=== PATIENT | male | born 1995 | race Two or more races ===

== ENCOUNTER 2024-08-16 08:58 | Emergency (ER) | payer OTHER ==
[~2024-08-16] VITALS: Ht 170.2 cm; Wt 60.0 kg
[2024-08-16 09:17] VITALS: O2SAT 97
[2024-08-16] MEDS ORDERED: AMOX1TAB16 MT (10:58)
[2024-08-16] MEDS ORDERED: IBUP-2029 MT (10:58)
[2024-08-16] MEDS: IBUPROFEN 800MG TABLET PO ONE (11:41)
[2024-08-16] MEDS: TETANUS, DIPHTHERIA, PERTUSSIS VAC/PF 0.5ML (>10YR OLD) IM ONE (11:41)
[2024-08-16] MEDS: LIDOCAINE HCL/PF 1% 10 MG/ML 5ML VIAL INFIL ONE (11:42)
[2024-08-16] MEDS: CEFAZOLIN 1000MG PREMIX 50 ML IV ONE (12:26)
[2024-08-16 12:52] VITALS: BP 122/64; PULSE 81; RESP 18; TEMP 36.89184; O2SAT 97
== END 2024-08-16 13:05 | disposition home or self-care (01) ==
LOC: ER 08:58
DX: S62.635A Displaced fracture of distal phalanx of left ring finger, initial encounter for closed fracture (principal); G43.909 Migraine, unspecified, not intractable, without status migrainosus; Z90.89 Acquired absence of other organs; X58.XXXA Exposure to other specified factors, initial encounter; Y93.89 Activity, other specified; Y92.89 Other specified places as the place of occurrence of the external cause; Y99.8 Other external cause status
CPT/HCPCS: 99284; 96365; 73140; 90715; 29130; 90471; J0690; J3490

== ENCOUNTER 2024-10-23 09:49 | Emergency (ER) | payer OTHER ==
[~2024-10-23] VITALS: Ht 170.2 cm; Wt 59.0 kg
[~2024-10-23 09:49] MED LIST: AMOX1TAB16 MT; IBUP-2029 MT
[2024-10-23 09:54] VITALS: O2SAT 99
[2024-10-23 10:45] LABS: BASOPHILS % 0.6 % (0.0-2.0); EOSINOPHILS % 2.2 % (0.0-5.0); HEMATOCRIT. 46.5 % (42.0-52.0); HEMOGLOBIN. 15.8 g/dL (14.0-18.0); LYMPHOCYTES % 35.1 % (20.0-50.0); MEAN CORPUSCULAR HEMOGLOBIN 30.5 pg (28.0-32.0); MEAN CORPUSCULAR HGB CONC 33.9 g/dL (31.0-37.0); MEAN CORPUSCULAR VOLUME 89.9 fL (80.0-94.0); MEAN PLATELET VOLUME 8.7 fl (7.4-10.4); MONOCYTES % 9.2 % (2.0-8.0); NEUTROPHILS % 52.9 % (40.0-76.0); PLATELET 259 x1000/uL (130-400); RED BLOOD CELL COUNT 5.17 mill/uL (4.7-6.1); RED CELL DISTRIBUTION WIDTH 13.6 % (11.6-14.6); WHITE BLOOD COUNT 5.7 x1000/uL (4.5-11.0)
[2024-10-23 10:59] LABS: TROPONIN I HIGH SENSITIVITY < 4 ng/L (3.0-53)
[2024-10-23 11:02] LABS: CHLORIDE 106 mEq/L (98-107); POTASSIUM 5.4 mEq/L (3.5-5.1); SODIUM 139 mEq/L (136-145)
[2024-10-23 11:03] LABS: CALCIUM 9.8 mg/dL (8.7-10.4); CARBON DIOXIDE 26 mEq/L (21-32)
[2024-10-23 11:08] LABS: CREATININE 0.9 mg/dL (0.6-1.3); GLUCOSE 93 mg/dL (70-105); UREA NITROGEN BLOOD 13 mg/dL (9-23)
[2024-10-23] MEDS ORDERED: PANT40SU MT (11:37)
[2024-10-23 12:36] VITALS: BP 120/75; PULSE 63; RESP 5; TEMP 36.6; O2SAT 99
== END 2024-10-23 12:38 | disposition home or self-care (01) ==
LOC: ER 09:49
DX: R07.9 Chest pain, unspecified (principal); E87.5 Hyperkalemia; Z79.899 Other long term (current) drug therapy; Z98.890 Other specified postprocedural states
CPT/HCPCS: 36415; 71045; 80048; 84484; 85025; 93005; 99285